=== PATIENT | male | born 1940 | race Caucasian/White ===

== ENCOUNTER 2019-01-02 01:07 | Emergency (ER) | payer MEDICARE, OTHER ==
[2019-01-02 01:42] LABS: #Basophils 0.1 thou/uL (0.0-0.2); #Eosinphils 0.3 thou/uL (0.0-0.7); #Lymphocytes 1.3 thou/uL (1.20-3.40); #Monocytes 0.9 thou/uL (0.11-0.59); #Neutrophils 5.2 thou/uL (1.40-6.50); %Basophils 1.3 % (0.0-1.0); %Eosinophils 3.5 % (0.0-10.0); %Lymphocytes 16.5 % (21.0-51.0); %Monocytes 11.6 % (0.0-10.0); Hemoglobin 12.5 g/dL (14.0-18.0); Mean Corpuscular HGB CONC 33.6 g/dL (32.0-36.0); Mean Corpuscular Hemoglobin 31.7 pg (27.0-31.0); Mean Corpuscular Volume 94.1 fL (78.0-98.0); Mean Platelet Volume 9.3 fL (7.4-10.4); Platelet Count 165 thou/uL (130-400); RBC Distribution Width 12.4 % (11.5-14.5); Red Blood Cell (RBC) Count 3.95 mill/uL (4.70-6.10); White Blood Cell (WBC) Count 7.8 thou/uL (4.8-10.8)
[2019-01-02] MEDS ORDERED: Famotidine In NaCl 20 mg/50 ml Premix Bag ONE (01:54)
[2019-01-02] MEDS ORDERED: Ondansetron PF 4 MG/2 ML Vial ONE (01:54)
[2019-01-02 01:56] LABS: ALT (SGPT) 15 U/L (8-55); AST (SGOT) 18 U/L (5-34); Albumin 3.9 g/dL (3.4-4.8); Alkaline Phosphatase 97 U/L (40-110); Anion Gap 14 mmol/L (10-20); BUN (Urea Nitrogen) 18 mg/dL (8.4-25.7); Bilirubin, Total Less than 0.2 mg/dL (0.2-1.2); Calc. Creatinine Clearance 0 mL/min (70-130); Calcium 8.8 mg/dL (7.8-10.44); Carbon Dioxide 23 mmol/L (23-31); Chloride 108 mmol/L (98-107); Estimated GFR-MDRD 61; Glucose 111 mg/dL (83-110); Lipase 34 U/L (8-78); Potassium 3.8 mmol/L (3.5-5.1); Protein, Total 6.9 g/dL (5.8-8.1); Sodium 141 mmol/L (136-145)
[2019-01-02 03:12] LABS: Bilirubin Negative (Negative); Blood, Urine Negative (Negative); Clarity Clear (Clear); Glucose, Urine (Dipstick) Negative (Negative); Leukocyte Negative (Negative); Nitrite Negative (Negative); Protein, Urine (Dipstick) Negative (Neg-Trace); Urobilinogen 0.2 mg/dL (Less than 2)
--- NOTE | 2019-01-02 06:39 | CT ---
PRELIMINARY REPORT/[facility]/EMERGENCY AFTER HOURS PROCEDURE: PROCEDURE INFORMATION: Exam: CT Head Without Contrast Exam date and time: 01/02/2019 1:42 AM Clinical history: 78 years old, male; Injury or trauma; Fall; Initial encounter; Blunt trauma (contus ions or hematomas); Without loss of consciousness; Injury date: 01/02/19; Injury details: Pts son sta ranulfo the PT got out of bed and then fell and hit hit on nightstand TECHNIQUE: Imaging protocol: Computed tomography of the head without contrast. Radiation optimization: All CT scans at this facility use at least one of these dose optimization adilene hniques: automated exposure control; mA and/or kV adjustment per patient size (includes targeted exam s where dose is matched to clinical indication); or iterative reconstruction. COMPARISON: No relevant prior studies available. FINDINGS: Brain: No evidence of acute large vessel infarction. No evidence of acute intracranial hemorrhage, ex traxial fluid or midline shift. Mild prominence of the cerebral sulci and ventricles. Mild low densit y changes within the white matter bilaterally. Cerebellum atrophic; otherwise, posterior fossa struct ures within normal limits. Ventricles: Normal. No ventriculomegaly. Bones/joints: Unremarkable. No acute fracture. Sinuses: Visualized sinuses are unremarkable. No fluid levels. Mastoid air cells: Visualized mastoid air cells are well aerated. Soft tissues: Unremarkable. IMPRESSION: 1. No evidence of acute large vessel infarction. 2. No evidence of acute intracranial hemorrhage, extraxial fluid or midline shift. 3. Mild cerebral atrophy. 4. 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 Thank you for allowing us to participate in the care of your patient. Dictated and Authenticated by: Nimisha Sheffield MD 01/02/2019 1:59 AM Central Time ([place] & [place]) FINAL REPORT CT BRAIN WITHOUT CONTRAST: Date: 01/02/19 The ventricles are mildly enlarged, most likely related to age and atrophy, though the sizes are slig htly larger than I would expect. Slight deep white matter lucency is typical of chronic microvascular ischemia. There was no intracranial bleeding or extra-axial hematoma. No sign of acute stroke, mass, or edema. The skull appears intact. The visible paranasal sinuses and mastoid air cells are clear. IMPRESSION: Chronic changes, but no acute findings. [facility]: QA POS: HOME
--- NOTE | 2019-01-02 06:39 | RAD ---
PORTABLE CHEST: Date: 01/02/19 An AP portable film at 0156 hours shows upper normal sized heart for age and AP projection. There is no vascular congestion or edema. The aorta is ectatic, but there is no worrisome widening of the medi astinum. There is no mediastinal shift. The lungs are fully inflated and clear. No infiltrate, effusi on, or pneumothorax seen. No acute bony findings. IMPRESSION: No acute thoracic findings. POS: HOME
== END 2019-01-02 03:30 | disposition home or self-care (01) ==
LOC: BURERS 01:07
DX: S09.90XA Unspecified injury of head, initial encounter (principal); I95.1 Orthostatic hypotension; R19.7 Diarrhea, unspecified; R11.2 Nausea with vomiting, unspecified; E03.9 Hypothyroidism, unspecified; Z86.73 Personal history of transient ischemic attack (TIA), and cerebral infarction without residual deficits; W01.198A Fall on same level from slipping, tripping and stumbling with subsequent striking against other object, initial encounter
CPT/HCPCS: 70450; 71045; 80053; 81003; 83690; 84484; 85025; 93005; 94760; 96361; 96365; 96367; J2405

== ENCOUNTER 2022-02-07 05:36 | Emergency (ER) | payer MEDICARE, OTHER | END 2022-02-07 06:59 | disposition home or self-care (01) | LOC: BURERS 05:36 | DX: M54.2 Cervicalgia (principal); E03.9 Hypothyroidism, unspecified; Z79.899 Other long term (current) drug therapy | CPT/HCPCS: 96372; 99283 ==

== ENCOUNTER 2022-03-16 10:20 | Outpatient (CLI) | payer MEDICARE | END 2022-03-16 10:21 | disposition home or self-care (01) | LOC: BURRAD 10:20 | PROVIDERS: ATTEND Family Medicine | DX: R53.83 Other fatigue (principal) | CPT/HCPCS: 71046 ==

== ENCOUNTER 2022-04-05 10:41 | Emergency (ER) | payer MEDICARE ==
[2022-04-05 11:38] LABS: #Basophils 0.1 thou/uL (0.0-0.2); #Eosinphils 0.5 thou/uL (0.0-0.7); #Lymphocytes 1.5 thou/uL (1.20-3.40); #Neutrophils 4.2 thou/uL (1.40-6.50); %Basophils 1.6 % (0.0-1.0); %Eosinophils 6.3 % (0.0-10.0); %Lymphocytes 20.5 % (21.0-51.0); %Monocytes 13.2 % (0.0-10.0); %Neutrophils 58.4 % (42.0-75.0); Hemoglobin 9.5 g/dL (14.0-18.0); Mean Corpuscular HGB CONC 30.1 g/dL (32.0-36.0); Mean Corpuscular Hemoglobin 27.1 pg (27.0-31.0); Mean Corpuscular Volume 89.9 fl (78.0-98.0); Mean Platelet Volume 7.6 fL (7.4-10.4); Platelet Count 280 10x3/uL (130-400); Red Blood Cell (RBC) Count 3.51 mill/uL (4.70-6.10); White Blood Cell (WBC) Count 7.2 10x3/uL (4.8-10.8)
[2022-04-05 12:09] LABS: ALT (SGPT) 34 U/L (8-55); AST (SGOT) 40 U/L (5-34); Alkaline Phosphatase 178 U/L (40-110); Anion Gap 14 mmol/L (10-20); BUN (Urea Nitrogen) 16 mg/dL (8.4-25.7); Bilirubin, Total 0.3 mg/dL (0.2-1.2); Calc. Creatinine Clearance 0 mL/min (70-130); Calcium 8.7 mg/dL (7.8-10.44); Carbon Dioxide 24 mmol/L (23-31); Chloride 107 mmol/L (98-107); Estimated GFR 70; Glucose 102 mg/dL (83-110); Potassium 4.4 mmol/L (3.5-5.1); Sodium 141 mmol/L (136-145)
[2022-04-05] MEDS ORDERED: Aspirin Chewable 81 MG TAB ONE ×2 (12:12→12:13)
[2022-04-05 12:18] LABS: CKMB 0.8 ng/mL (0-6.6)
[2022-04-05] MEDS ORDERED: Lorazepam 2 MG/ML VIAL ONE ×2 (13:51→13:54)
[2022-04-05] MEDS ORDERED: Morphine 4 MG/ML VIAL ONE (16:54)
[2022-04-05] MEDS ORDERED: Acetaminophen 325 MG TAB ONE (16:55)
[2022-04-05 22:42] LABS: CKMB 0.9 ng/mL (0-6.6)
== END 2022-04-05 23:05 | disposition short-term general hospital (02) ==
LOC: BURERS 10:41
DX: R42 Dizziness and giddiness (principal); R53.1 Weakness; R77.8 Other specified abnormalities of plasma proteins; I44.0 Atrioventricular block, first degree; I49.1 Atrial premature depolarization; E03.9 Hypothyroidism, unspecified; E78.00 Pure hypercholesterolemia, unspecified; I10 Essential (primary) hypertension; F03.90 Unspecified dementia, unspecified severity, without behavioral disturbance, psychotic disturbance, mood disturbance, and anxiety; Z86.73 Personal history of transient ischemic attack (TIA), and cerebral infarction without residual deficits; Z79.82 Long term (current) use of aspirin; Z79.899 Other long term (current) drug therapy
CPT/HCPCS: 36415; 70450; 72125; 80053; 82553; 84484; 85025; 93005; 96374; 96375; J2060; J2270

== ENCOUNTER 2022-04-10 11:33 | Emergency (ER) | payer MEDICARE ==
[2022-04-10 12:50] LABS: #Basophils 0.1 thou/uL (0.0-0.2); #Eosinphils 0.5 thou/uL (0.0-0.7); #Monocytes 0.6 thou/uL (0.11-0.59); #Neutrophils 3.9 thou/uL (1.40-6.50); %Basophils 2.3 % (0.0-1.0); %Eosinophils 7.8 % (0.0-10.0); %Lymphocytes 15.7 % (21.0-51.0); %Monocytes 10.1 % (0.0-10.0); %Neutrophils 64.1 % (42.0-75.0); Hemoglobin 10.2 g/dL (14.0-18.0); Mean Corpuscular Hemoglobin 26.6 pg (27.0-31.0); Mean Corpuscular Volume 88.5 fl (78.0-98.0); Mean Platelet Volume 8.3 fL (7.4-10.4); Platelet Count 293 10x3/uL (130-400); RBC Distribution Width 14.9 % (11.5-14.5); Red Blood Cell (RBC) Count 3.83 mill/uL (4.70-6.10); White Blood Cell (WBC) Count 6.1 10x3/uL (4.8-10.8)
[2022-04-10 13:04] LABS: ALT (SGPT) 40 U/L (8-55); AST (SGOT) 43 U/L (5-34); Albumin 4.3 g/dL (3.4-4.8); Alkaline Phosphatase 193 U/L (40-110); Anion Gap 13 mmol/L (10-20); BUN (Urea Nitrogen) 15 mg/dL (8.4-25.7); Bilirubin, Total 0.2 mg/dL (0.2-1.2); Calc. Creatinine Clearance 0 mL/min (70-130); Calcium 9.1 mg/dL (7.8-10.44); Carbon Dioxide 26 mmol/L (23-31); Chloride 106 mmol/L (98-107); Estimated GFR 62; Globulin 3.2 g/dL (2.4-3.5); Glucose 138 mg/dL (83-110); Potassium 4.3 mmol/L (3.5-5.1); Protein, Total 7.5 g/dL (5.8-8.1); Sodium 141 mmol/L (136-145)
== END 2022-04-10 14:54 | disposition home or self-care (01) ==
LOC: BURERS 11:33
DX: R51.9 Headache, unspecified (principal); I10 Essential (primary) hypertension; E03.9 Hypothyroidism, unspecified; E78.00 Pure hypercholesterolemia, unspecified; Z71.1 Person with feared health complaint in whom no diagnosis is made; Z86.73 Personal history of transient ischemic attack (TIA), and cerebral infarction without residual deficits; Z87.891 Personal history of nicotine dependence; Z79.82 Long term (current) use of aspirin; Z79.899 Other long term (current) drug therapy
CPT/HCPCS: 70450; 80053; 85025